=== PATIENT | male | born 1990 | race Two or more races ===

== ENCOUNTER → 2016-08-02 | Outpatient (CLI) | payer OTHER ==
--- NOTE | 2016-08-02 16:22 | CR ---
EXAMINATION: Left foot HISTORY: Fracture COMPARISON: 07/05/2016 TECHNIQUE: 2 views FINDINGS/IMPRESSION: There is likely narrowing well-healed fracture along the anterior medial aspect of the talus. The remaining osseous structures and joint spaces appear preserved.
== END ==
LOC: MW.CHORTHO 07:38
PROVIDERS: ATTEND Physician Assistant
DX: S92.102A Unspecified fracture of left talus, initial encounter for closed fracture (principal)
CPT/HCPCS: 73620-26-LT; 73620-LT

== ENCOUNTER 2021-10-11 23:12 | Emergency (ER) | payer SELFPAY ==
[2021-10-12] MEDS ORDERED: Ondansetron 4 MG Tab.DIS PO ONE (01:00)
[2021-10-12] MEDS ORDERED: Ketorolac 30 MG/ML SDV IM ONE (01:54)
== END 2021-10-12 02:18 | disposition home or self-care (01) ==
LOC: MW.ED 23:12
DX: S06.0X0A Concussion without loss of consciousness, initial encounter (principal); W18.30XA Fall on same level, unspecified, initial encounter
CPT/HCPCS: 70450; 96372; 99284; A9270; J1885

== ENCOUNTER 2024-07-09 21:56 | Emergency (ER) | payer SELFPAY ==
[2024-07-09] MEDS: Albuterol/Ipratropium 3.0-0.5 MG/3 ML Neb Soln ONE ×2 (22:21→22:40)
[2024-07-09] MEDS: methylPREDNISolone Sodium Succinate 125 MG/2 ML SDV IVPUSH ONE (23:00)
[2024-07-09] MEDS: Albuterol/Ipratropium 3.0-0.5 MG/3 ML Neb Soln NEB ONE ×2 (23:01)
== END 2024-07-10 00:20 | disposition home or self-care (01) ==
LOC: MW.ED 21:56
DX: J45.901 Unspecified asthma with (acute) exacerbation (principal); Z91.013 Allergy to seafood; Z88.8 Allergy status to other drugs, medicaments and biological substances; Z79.51 Long term (current) use of inhaled steroids; Z86.16 Personal history of COVID-19
CPT/HCPCS: 71045; 87428; 93005; 96374; 99285; J2919; J7620; 93010; 99284; A9270-GY